=== PATIENT | female | born 2000 | race Two or more races ===

== ENCOUNTER 2024-09-03 11:37 | Emergency (ER) | payer OTHER ==
[~2024-09-03] VITALS: Ht 162.6 cm; Wt 91.2 kg
[~2024-09-03 11:37] MED LIST: PEPCID AC20 MG PO; WELLBUTRIN SR200 MG PO; ZOFRAN8 MG PO
[2024-09-03] MEDS ORDERED: LIDOCAINE HCL 1% 10ML VIAL IJ ONE (12:30)
[2024-09-03 13:30] LABS: HEMATOCRIT 36.5 % (36.0-45.00); HEMOGLOBIN 12.3 g/dL (12.0-15.00); MEAN CELL VOLUME 79.6 fL (80.00-100.00); MEAN CORPUSCULAR HEMOGLOBIN 26.9 pg (27.00-32.0); MEAN CORPUSCULAR HGB CONC 33.8 g/dl (32.0-36.0); PLATELET COUNT 311 K/uL (150-450); RED BLOOD COUNT 4.58 M/uL (4.00-6.00); RED CELL DISTRIBUTION WIDTH 14.7 % (11.5-14.5)
[2024-09-03 14:01] LABS: ANION GAP 9 (10.0-20.0); BLOOD UREA NITROGEN 9 mg/dL (7-18); BUN CREA RATIO 13 (7.0-25.0); CALCIUM 9.3 mg/dL (8.5-10.1); CARBON DIOXIDE 28 mEq/L (21-32); CHLORIDE 109 mmol/L (98-107); CREATININE SERUM 0.68 mg/dL (0.55-1.02); GFR 105.42; GLUCOSE FASTING 91 mg/dL (65-100); OSMOLALITY SERUM 280 MOSM/KG (275-295); PHOSPHOKINASE CREATININE 81 U/L (26-192); POTASSIUM 4.63 mEq/L (3.5-5.1); SODIUM 141 mmol/L (136-145)
[2024-09-03 14:14] LABS: HCG QUANTITATIVE < 1 mUI/mL (1-3)
== END 2024-09-03 16:01 | disposition home or self-care (01) ==
LOC: ER 11:39
PROVIDERS: General Practice
DX: S01.122A Laceration with foreign body of left eyelid and periocular area, initial encounter (principal); W18.39XA Other fall on same level, initial encounter; Y93.89 Activity, other specified; Y92.89 Other specified places as the place of occurrence of the external cause; R55 Syncope and collapse

== ENCOUNTER → 2024-09-13 | Emergency (ER) | payer OTHER ==
[~2024-09-13] VITALS: Ht 162.6 cm; Wt 93.0 kg
== END | disposition left against medical advice (07) ==
LOC: ER 11:43
DX: Z53.21 Procedure and treatment not carried out due to patient leaving prior to being seen by health care provider (principal)